=== PATIENT | male | born 1960 | race Caucasian/White ===

== ENCOUNTER 2017-01-10 21:59 | Inpatient (IN) | payer SELFPAY ==
[~2017-01-10] VITALS: Ht 165.1 cm; Wt 71.8 kg
[2017-01-11 01:20] LABS: BASOPHILS % 0.4 % (0.0-2.0); EOSINOPHILS % 0.2 % (0.0-5.0); HEMATOCRIT. 35.7 % (42.0-52.0); HEMOGLOBIN. 12.7 g/dL (14.0-18.0); LYMPHOCYTES % 9.4 % (20.0-50.0); MEAN CORPUSCULAR VOLUME 84.7 fL (80.0-94.0); MEAN PLATELET VOLUME 8.8 fl (7.4-10.4); MONOCYTES % 3.3 % (2.0-8.0); NEUTROPHILS % 86.7 % (40.0-76.0); PLATELET 191 x1000/uL (130-400); RED BLOOD CELL COUNT 4.22 mill/uL (4.7-6.1); RED CELL DISTRIBUTION WIDTH 13.3 % (11.6-14.6)
[2017-01-11 01:28] LABS: PARTIAL THROMBOPLASTIN TIME 26.3 sec (24.0-34.0); PROTHROMBIN TIME 10.7 sec
[2017-01-11 01:37] LABS: CARBON DIOXIDE 25 mEq/L (21-32); CHLORIDE 99 mEq/L (98-107); ETHANOL BLOOD < 10 mg/dL; TROPONIN I 0.02 ng/mL (0.00-0.04)
[2017-01-11] MEDS ORDERED: ASPIRIN 325MG EC TABLET PO ONE (02:15)
[2017-01-11 02:56] LABS: *AMPHETAMINES SCREEN URINE NEGATIVE (NEGATIVE); *BARBITURATES SCREEN URINE NEGATIVE (NEGATIVE); *BENZODIAZEPINES SCREEN URINE NEGATIVE (NEGATIVE); *COCAINE SCREEN URINE NEGATIVE (NEGATIVE); CANNABINOID URINE SCREEN PRESUMTIVE POSITIVE (NEGATIVE); METHADONE URINE SCREEN NEGATIVE (NEGATIVE); OPIATES URINE SCREEN NEGATIVE (NEGATIVE); PHENCYCLIDINE URINE SCREEN NEGATIVE (NEGATIVE)
[2017-01-11 10:00] VITALS: BP 116/76
[2017-01-11 10:05] VITALS: BP 116/76
[2017-01-11] MEDS ORDERED: GLYB5TAB7 PO (11:20)
[2017-01-11] MEDS ORDERED: LISI-186 PO (11:20)
[2017-01-11 12:00] VITALS: BP 117/76
[2017-01-11 14:00] VITALS: BP 117/75
[2017-01-11] MEDS ORDERED: ACETAMINOPHEN 650MG SUPP PR PRN (15:45)
[2017-01-11] MEDS ORDERED: ACETAMINOPHEN 325MG TABLET PO PRN (15:45)
[2017-01-11] MEDS ORDERED: ACETAMINOPHEN 650MG/20.3ML UDC GT PRN (15:45)
[2017-01-11] MEDS ORDERED: GUAIFENESIN 200MG/10ML SUGAR FREE UDC PO PRN (15:45)
[2017-01-11] MEDS ORDERED: MAGNESIUM/ALUMINUM HYDROXIDE/SIMETHICONE 30ML UDC PO PRN (15:45)
[2017-01-11] MEDS ORDERED: DEXTROSE 50% WATER 50ML SYRINGE IV PRN (15:45)
[2017-01-11] MEDS ORDERED: ONDANSETRON HCL 4MG/2ML VIAL IV PRN (15:45)
[2017-01-11] MEDS ORDERED: DIPHENHYDRAMINE 50MG/ML VIAL IV PRN (15:45)
[2017-01-11] MEDS ORDERED: IPRATROPIUM/ALBUTEROL 0.5-3(2.5)MG/3ML NEB INH PRN (15:45)
[2017-01-11] MEDS ORDERED: HYDROCODONE/ACETAMINOPHEN 5/325MG TABLET PO PRN (15:45)
[2017-01-11] MEDS ORDERED: DOCUSATE SODIUM 100MG CAPSULE PO PRN (15:45)
[2017-01-11] MEDS ORDERED: NA PHOS,M-B/NA PHOS,DI-BA ENEMA 118ML PR PRN (15:45)
[2017-01-11 16:00] VITALS: BP 118/75
[2017-01-11] MEDS: BLOOD SUGAR DIAGNOSTIC STRIP TEST SCH ×2 (18:16→21:00)
[2017-01-11] MEDS: INSULIN LISPRO 100 UNITS/ML SUBCUT SCH ×2 (18:20→22:16)
[2017-01-11 20:00] VITALS: BP 105/65
[2017-01-11] MEDS ORDERED: SODIUM CHLORIDE 0.9% INJ 3ML FLUSH IVF SCH (22:00)
[2017-01-12] VITALS: BP 106/67
[2017-01-12 01:02] LABS: CREATINE KINASE 127 IU/L (39-308); TROPONIN I < 0.02 ng/mL (0.00-0.04)
[2017-01-12 04:00] VITALS: BP 109/63
[2017-01-12 07:10] LABS: BASOPHILS % 0.7 % (0.0-2.0); EOSINOPHILS % 2.5 % (0.0-5.0); HEMATOCRIT. 37.7 % (42.0-52.0); HEMOGLOBIN. 13.3 g/dL (14.0-18.0); LYMPHOCYTES % 36.8 % (20.0-50.0); MEAN CORPUSCULAR HEMOGLOBIN 30.3 pg (28.0-32.0); MEAN PLATELET VOLUME 8.7 fl (7.4-10.4); MONOCYTES % 6.9 % (2.0-8.0); NEUTROPHILS % 53.1 % (40.0-76.0); PLATELET 185 x1000/uL (130-400); RED BLOOD CELL COUNT 4.38 mill/uL (4.7-6.1); RED CELL DISTRIBUTION WIDTH 13.3 % (11.6-14.6)
[2017-01-12 07:18] LABS: CARBON DIOXIDE 25 mEq/L (21-32); CHLORIDE 103 mEq/L (98-107); LDL CHOLESTEROL 88 mg/dL (5-100)
[2017-01-12 07:21] LABS: CREATINE KINASE 101 IU/L (39-308); HDL CHOLESTEROL 39 mg/dL (40-59); TROPONIN I < 0.02 ng/mL (0.00-0.04)
[2017-01-12] MEDS ORDERED: ASPI-1159 PO (07:43)
[2017-01-12 08:06] VITALS: BP 108/85
[2017-01-12] MEDS: BLOOD SUGAR DIAGNOSTIC STRIP TEST SCH (08:09)
[2017-01-12] MEDS: INSULIN LISPRO 100 UNITS/ML SUBCUT SCH (08:13)
[2017-01-12] MEDS ORDERED: ASPIRIN 81MG EC TABLET PO SCH (09:00)
[2017-01-12] MEDS ORDERED: LISINOPRIL 10MG TABLET PO SCH (09:00)
[2017-01-12 09:17] VITALS: BP 108/85
== END 2017-01-12 09:45 | disposition home or self-care (01) | DRG 45 ==
LOC: ER 22:41 → 5EST 01-11 02:10 → ENRESERV 01-11 07:53
PROVIDERS: ADMIT Family Medicine; ATTEND Family Medicine
DX: I63.9 Cerebral infarction, unspecified (principal); I10 Essential (primary) hypertension; R27.0 Ataxia, unspecified; E78.00 Pure hypercholesterolemia, unspecified; E11.9 Type 2 diabetes mellitus without complications; E78.5 Hyperlipidemia, unspecified
CPT/HCPCS: 36415; 70450; 70551; 71010; 80053; 80061; 80305; 82550; 82962; 84484; 85025; 85610; 85730; 86850; 86900; 93005; 97161; 99285; G0482; J1815